=== PATIENT | male | born 1950 ===

== ENCOUNTER 2017-03-10 08:45 | Emergency (ER) | payer MEDICARE, MEDICAID ==
[2017-03-10] MEDS ORDERED: Lidocaine 5% Patch TD STA (09:19)
[2017-03-10] MEDS ORDERED: Lidocaine 5% Patch TD ONE (09:24)
--- NOTE | 2017-03-10 10:31 | C.PDOC ---
History Of Present Illness 66 y/o male c/o left sided lower back pain that radiates down the left buttock for a month. Pain is 10/10 and sharp. Patient was seen by his pain management doctor and was given Tylenol with codeine and Tramadol. Patient is to follow up next week for injection. Patient reports injuring his back 5 months ago and believed to have slipped his disk. Denies fever, chills, abdominal pain, constipation. No numbness, weakness, tingling, or dysuria. Time Seen by Provider: 03/10/17 09:16 Chief Complaint (Nursing): Back Pain History Per: Patient History/Exam Limitations: no limitations Onset/Duration Of Symptoms: Days (A month) Current Symptoms Are (Timing): Still Present Quality Of Discomfort: Sharp Severity: Severe Pain Scale Rating Of: 10 Associated Symptoms: denies: New Weakness, New Numbness Recent travel outside of the [place]: No Additional History Per: Patient Past Medical History Reviewed: Historical Data, Nursing Documentation, Vital Signs Vital Signs: Last Vital Signs Temp 98.4 F 03/10/17 10:38 Pulse 84 03/10/17 10:38 Resp 20 03/10/17 10:38 BP 112/66 03/10/17 10:38 Pulse Ox 98 03/10/17 11:19 - Medical History PMH: HTN Family History: States: Unknown Family Hx - Social History Hx Alcohol Use: No Hx Substance Use: No Review Of Systems Except As Marked, All Systems Reviewed And Found Negative. Constitutional: Negative for: Fever, Chills Gastrointestinal: Negative for: Abdominal Pain, Constipation Genitourinary: Negative for: Dysuria Musculoskeletal: Positive for: Back Pain Neurological: Negative for: Weakness, Numbness, Other (Tingling) Physical Exam - Physical Exam Appears: Non-toxic, Other (Appears uncomfortable) Skin: Warm, Dry Head: Atraumatic, Normacephalic Cardiovascular: Rhythm Regular, No Murmur Respiratory: Normal Breath Sounds, No Rales, No Rhonchi, No Wheezing Gastrointestinal/Abdominal: Soft, No Tenderness Back: No CVA Tenderness, No Vertebral Tenderness, No Paraspinal Tenderness, Other (No bruising, step off deformity, ecchymosis, or warmth.) Extremity: Normal ROM (x4) Pulses: Left Dorsalis Pedis: Normal, Right Dorsalis Pedis: Normal Neurological/Psych: Oriented x3, Normal Motor, Normal Sensation, Other (NO focal deficit) Gait: Unsteady (Favors the right side, opposite of pain location.) ED Course And Treatment O2 Sat by Pulse Oximetry: 98 (RA) Pulse Ox Interpretation: Normal Medical Decision Making Medical Decision Making: Plans: * Lidoderm * Valium * Motrin * Tylenol Disposition Counseled Patient/Family Regarding: Diagnosis, Need For Followup, Rx Given - Disposition Referrals: Javier Rodríguez MD [Non-Staff] - Disposition: HOME/ ROUTINE Disposition Time: 10:31 Condition: STABLE Prescriptions: diaZEpam [Valium] 5 mg PO TID #12 tab Ibuprofen [Motrin] 600 mg PO TID #15 tab Lidocaine 5% [Lidoderm] 1 ea TD DAILY #3 patch Instructions: Sciatica (ED) Forms: Gen Discharge Inst Gabonese, [facility] (Gabonese) - POA Present On Arrival: None - Clinical Impression Clinical Impression: Low back pain - Scribe Statement The provider has reviewed the documentation as recorded by the Scribanjana garcia All medical record entries made by the Scribe were at my direction and personally dictated by me. I have reviewed the chart and agree that the record accurately reflects my personal performance of the history, physical exam, medical decision making, and the department course for this patient. I have also personally directed, reviewed, and agree with the discharge instructions and disposition.
[2017-03-10 10:38] VITALS: BP 112/66; PULSE 84; RESP 20; TEMP 98.4
[2017-03-10 11:17] VITALS: O2SAT 98
== END 2017-03-10 10:39 | disposition home or self-care (01) ==
LOC: C.ER 08:45
DX: M54.5 Low back pain (principal)

== ENCOUNTER 2017-10-18 14:00 | Emergency (ER) | payer MEDICARE, MEDICAID ==
[2017-10-18 14:30] VITALS: O2SAT 100
--- NOTE | 2017-10-18 15:58 | C.PDOC ---
Time Seen by Provider: 10/18/17 15:11 Chief Complaint (Nursing): Eye Problem Past Medical History Vital Signs: Last Vital Signs Temp 99.9 F H 10/18/17 14:27 Pulse 116 H 10/18/17 14:27 Resp 20 10/18/17 14:27 BP 175/100 H 10/18/17 14:27 Pulse Ox 100 10/18/17 14:27 - Medical History PMH: HTN Family History: States: Unknown Family Hx - Social History Hx Alcohol Use: No Hx Substance Use: No ED Course And Treatment O2 Sat by Pulse Oximetry: 100 Disposition - Disposition
[2017-10-18 16:49] LABS: BASO % 0.3 % (0.0-2.0); EOS # 0.2 K/uL (0.0-0.7); EOS % 1.8 % (0.0-4.0); HEMOGLOBIN 11.8 g/dL (12.0-18.0); LYMPH # 3.3 K/uL (1.0-4.3); LYMPH % 36.7 % (20.0-40.0); MEAN CELL VOLUME 85.1 fL (80.0-94.0); MEAN CORPUSCULAR HEMOGLOBIN 28.3 pg (27.0-31.0); MEAN CORPUSCULAR HGB CONC 33.3 g/dL (33.0-37.0); MEAN PLATELET VOLUME 7.4 fL (7.2-11.7); MONO # 0.7 K/uL (0.0-0.8); MONO % 7.8 % (0.0-10.0); NEUT # 4.8 K/uL (1.8-7.0); NEUT % 53.4 % (50.0-75.0); NRBC % 0.1 % (0.0-2.0); RBC 4.17 Mil/uL (4.40-5.90); RED CELL DISTRIBUTION WIDTH 17.3 % (11.5-14.5)
--- NOTE | 2017-10-18 17:05 | RAD ---
HISTORY: Fever COMPARISON: No prior. TECHNIQUE: Chest PA and lateral FINDINGS: LUNGS: Minimal biapical pleural thickening. Biapical bullous emphysematous changes also suspect. Hyperaeration. No dense consolidation noted. Projecting over the right 6th rib anterior aspect sub cm nodular opacity is noted this may represent a nipple shadow appears - very slightly more conspicuous on the right. Nipple markers with bilateral oblique views recommended to further evaluate graft PLEURA: No significant pleural effusion identified. No pneumothorax apparent. CARDIOVASCULAR: Normal. OSSEOUS STRUCTURES: Cervical spine hardware present VISUALIZED UPPER ABDOMEN: Normal. OTHER FINDINGS: None. IMPRESSION: No consolidations seen. Other findings -as above.
[2017-10-18 17:11] LABS: INR 1.1; PROTHROMBIN TIME 12.2 SECONDS (9.7-12.2)
[2017-10-18 17:12] LABS: URINE BILIRUBIN NEGATIVE (NEGATIVE); URINE BLOOD NEGATIVE (NEGATIVE); URINE CLARITY Clear (Clear); URINE COLOR Yellow (YELLOW); URINE GLUCOSE (UA) NORMAL (Normal); URINE LEUKOCYTE ESTERASE NEG Leu/uL (Negative); URINE PROTEIN NEGATIVE (NEGATIVE); URINE UROBILINOGEN NORMAL mg/dL (0.2-1.0)
[2017-10-18 17:16] LABS: ALBUMIN 4.5 g/dL (3.5-5.0); ALT/SGPT 25 U/L (21-72); AST/SGOT 21 U/L (17-59); BLOOD UREA NITROGEN 19 mg/dL (9-20); CALCIUM 9.6 mg/dl (8.6-10.4); GFR AFRICAN-AMERICAN > 60; GFR NON-AFRICAN AMERICAN > 60
--- NOTE | 2017-10-18 17:48 | C.PDOC ---
History Of Present Illness Pt states that he was called by his [employer] Operator and told to the go to the ER because his blood work shows an "infection". Time Seen by Provider: 10/18/17 15:11 Chief Complaint (Nursing): Medical Clearance History Per: Patient, Family Onset/Duration Of Symptoms: Days, Unknown Current Symptoms Are (Timing): Still Present Severity: Moderate Reports Recently: Treated By A Physician Additional History Per: Prior Records Past Medical History Reviewed: Historical Data, Nursing Documentation, Vital Signs Vital Signs: Last Vital Signs Temp 99.9 F H 10/18/17 14:27 Pulse 116 H 10/18/17 14:27 Resp 20 10/18/17 14:27 BP 175/100 H 10/18/17 14:27 Pulse Ox 100 10/18/17 17:53 - Medical History PMH: HTN Other PMH: blind in both eyes Other Surgeries: b/l eye surgery Family History: States: Unknown Family Hx - Social History Hx Alcohol Use: No Hx Substance Use: No Review Of Systems Except As Marked, All Systems Reviewed And Found Negative. Constitutional: Negative for: Weakness Eyes: Positive for: Pain (left eye) ENT: Positive for: Nose Congestion. Negative for: Ear Pain, Throat Pain Cardiovascular: Negative for: Chest Pain Respiratory: Negative for: Cough, Shortness of Breath Gastrointestinal: Negative for: Vomiting, Abdominal Pain, Diarrhea Genitourinary: Negative for: Dysuria Musculoskeletal: Negative for: Neck Pain, Back Pain Skin: Negative for: Rash Neurological: Negative for: Weakness, Numbness, Seizures, Altered Mental Status Physical Exam - Physical Exam Appears: Non-toxic, No Acute Distress Skin: Normal Color, Warm, Dry, No Rash Head: Atraumatic, Normacephalic Eye(s): bilateral: EOMI, Abnormal Pupil (Post surgical) Neck: Normal ROM, Supple Cardiovascular: Rhythm Regular Respiratory: Normal Breath Sounds, No Accessory Muscle Use Gastrointestinal/Abdominal: Soft, No Tenderness Back: No CVA Tenderness Extremity: Normal ROM, No Pedal Edema, No Calf Tenderness Neurological/Psych: Oriented x3, Normal Motor, Normal Sensation ED Course And Treatment - Laboratory Results Result Diagrams: 10/18/17 16:40 10/18/17 17:02 O2 Sat by Pulse Oximetry: 100 Pulse Ox Interpretation: Normal Progress Note: We obtained labs from his ophalmologist's office that shows he tested positive for HIV and RPR was positive as well. Pt wants to leave the ED right now. I explained to him that he has HIV and possibly advanced Syphilis. He insists on leaving AMA right now and is not willing to wait for his PMD to call back. - Physician Consult Information Time Consulting Physician Contacted: 17:30 Physician Contacted: Martin Dangelo Outcome Of Conversation: He did not answer or call back. Against Medical Advice - AMA Patient Left Against Medical Advice: The patient declines admission to the hospital and wishes to leave the Emergency Department. This action is against my medical advice. This decision was made with informed refusal. The patient was told that admission to the hospital is necessary. Explanation of the reasons why were discussed. The risks of leaving were explained to the patient and include, but are not limited to, worsening of known or currently unknown conditions, permanent disability and from undiagnosed or untreated conditions. The patient has the capacity to make this informed decision and understands my explanation of the current medical problem and risks of leaving. The patient voluntarily accepts these risks and signed an AMA form documenting our conversation. The patient was given the opportunity to ask questions and reconsider. The patient was encouraged to return to the Emergency Department at any time for further care. Disposition Counseled Patient/Family Regarding: Studies Performed, Diagnosis, Need For Followup - Disposition Referrals: Martin Dangelo MD [Staff Provider] - Disposition: AGAINST MEDICAL ADVICE Disposition Time: 17:52 Condition: GUARDED Additional Instructions: Follow up with your doctor as soon as possible. Return to the ER if you change your mind, develop fever, worsening of symptoms or if you have any other concerns. Instructions: Leaving Against Medical Advice Forms: [employer] (Kyrgyz) - Clinical Impression Clinical Impression: Left against medical advice, HIV (human immunodeficiency virus infection), Positive RPR test
[2017-10-18 18:12] VITALS: BP 162/99; PULSE 106; RESP 18; TEMP 98.9
== END 2017-10-18 18:12 | disposition left against medical advice (07) ==
LOC: C.ER 14:00
DX: B20 Human immunodeficiency virus [HIV] disease (principal)